=== PATIENT | male | born 1980 | race African-American/Black ===

== ENCOUNTER 2017-05-31 15:15 | Emergency (ER) | payer OTHER ==
[~2017-05-31] VITALS: Ht 180.3 cm; Wt 55.3 kg
[2017-05-31 15:17] VITALS: BP 134/83
--- NOTE | 2017-05-31 15:25 | NUR ---
37/M PRESENT TO ER C/O ALCOHOL WITHDRAWAL x TODAY. PT STATES HE IS IN THE PROCESS OF GETTING IN A TREATMENT PROGRAM. PT STATES HIS LAST ALCOHOL INTAKE WAS TODAY. SKIN IS PINK/WARM/DRY; AAOX4 WITH EVEN AND STEADY GAIT; LUNGS CLEAR BL; HR EVEN AND REGULAR; PT DENIES ANY FEVER, CP, SOB, OR COUGH AT THIS TIME; PATIENT STATES PAIN OF 0/10 AT THIS TIME; VSS; PATIENT POSITIONED FOR COMFORT; HOB ELEVATED; BEDRAILS UP X2; BED DOWN. ER MD MADE AWARE OF PT STATUS.
[2017-05-31] MEDS ORDERED: NACL 0.9% 1,000 ML IV ONE (15:40)
[2017-05-31] MEDS ORDERED: LORazepam 2 MG/ML VIAL IVP ONE (15:40)
--- NOTE | 2017-05-31 15:57 | NUR ---
LAB AT BEDSIDE
[2017-05-31 16:13] LABS: BASOPHILS # (AUTO) 0.2 K/uL (0.00-0.22); EOSINOPHILS # (AUTO) 0.1 K/uL (0-0.4); HEMATOCRIT 43.9 % (36-52); HEMOGLOBIN 14.3 g/dL (12.0-18.0); LYMPHOCYTES # (AUTO) 1.5 K/uL (2.0-11.5); MEAN CORPUSCULAR HEMOGLOBIN 29 pg (27-31); MEAN CORPUSCULAR HGB CONC 33 g/dL (33-37); MEAN CORPUSCULAR VOLUME 87 fL (80-94); MONOCYTES # (AUTO) 0.3 K/uL (0.8-1.0); NEUTROPHILS # (AUTO) 2.5 K/uL (1.8-7.7); PLATELET COUNT (AUTO) 216 K/uL (140-450); RED BLOOD CELL COUNT(AUTO) 5.04 MIL/uL (4.20-6.10); RED CELL DISTRIBUTION WIDTH 13.4 % (11.6-13.7); WHITE BLOOD COUNT (AUTO) 4.6 K/uL (4.8-10.8)
[2017-05-31 16:22] LABS: ANION GAP 15.7 (8-16); CARBON DIOXIDE 29.3 mmol/L (21-32); CHLORIDE 95 mmol/L (98-107); CREATININE 1.2 mg/dL (0.7-1.3); GFR ARICAN-AMERICAN 87 mL/min (>90); GLUCOSE 217 mg/dL (74-106); SODIUM SERUM 137 mmol/L (136-145); UREA NITROGEN, BLOOD 9 mg/dL (7-18)
[2017-05-31 16:27] LABS: ALBUMIN 4.4 g/dL (3.4-5.0); ASPARTATE AMINOTRANSFERASE 347 U/L (15-37); TOTAL BILIRUBIN 0.7 mg/dL (0.0-1.0)
[2017-05-31 16:28] LABS: ACETAMINOPHEN < 0.5 ug/ml (10-30); SALICYLATE < 2.8 mg/dL (2.8-20.0)
[2017-05-31 16:35] LABS: PROTHROMBIN TIME 9.8 secs (10.8-13.4)
[2017-05-31] MEDS ORDERED: POTASSIUM CHLORIDE 10 MEQ TABER PO ONE (16:40)
--- NOTE | 2017-05-31 16:40 | NUR ---
RECEIVED REPORT FROM MAVERICK MCCOY. TRANSFER OF CARE AT THIS TIME.
--- NOTE | 2017-05-31 16:50 | NUR ---
PT DRINKING JUICE AT THIS TIME, PT AAO, NO DISTRESS NOTED
--- NOTE | 2017-05-31 17:01 | NUR ---
PT CLAIMED IM WAITING FOR MY GIRLFRIEND , CAN I STILL STAY FOR A WHILE AND REST, SHE IS COMING SOON.
--- NOTE | 2017-05-31 17:18 | NUR ---
DR. LARA AT BEDSIDE
--- NOTE | 2017-05-31 17:19 | NUR ---
COUNSELING AND ALCOHOL PACKET GIVEN TO PATIENT.
[2017-05-31 17:32] VITALS: BP 119/80
--- NOTE | 2017-05-31 17:32 | NUR ---
Patient discharged with v/s stable. Written and verbal after care instructions given and explained. Patient alert, oriented and verbalized understanding of instructions. Ambulatory with steady gait. All questions addressed prior to discharge. ID band removed. Patient advised to follow up with PMD. Rx of ATIVAN 0.5MG given. Patient educated on indication of medication including possible reaction and side effects. Opportunity to ask questions provided and answered.
[2017-05-31 17:38] LABS: BARBITURATE, URINE NEG. ng/ml (NEG <=200); BENZODIAZEPINE, URINE NEG. ng/mL (NEG <=200); CANNABINOID, URINE NEG. ng/mL (NEG <=50); COCAINE, URINE NEG. ng/mL (NEG <=300); OPIATE, URINE NEG. ng/mL (NEG <=2000); PHENCYCLIDINE SCREEN,URINE NEG. ng/mL (NEG <=25)
== END 2017-05-31 17:32 | disposition home or self-care (01) ==
LOC: MED 15:15
DX: F10.10 Alcohol abuse, uncomplicated (principal); E87.6 Hypokalemia
CPT/HCPCS: 36415; 80053; 80305; 85025; 85610; 96361; 96374; 99284; G0480; G0482; J2060; J7030